=== PATIENT | female | born 1950 ===

== ENCOUNTER 2023-11-22 07:52 | Day surgery (SDC) | payer OTHER | END 2023-11-22 13:45 | disposition home or self-care (01) | LOC: AMB-ENDOS 07:52 → CIR.AMB 13:15 → AMB-ENDOS 13:45 | PROVIDERS: ATTEND Surgery | DX: D12.5 Benign neoplasm of sigmoid colon (principal); K62.5 Hemorrhage of anus and rectum; K57.30 Diverticulosis of large intestine without perforation or abscess without bleeding; Z20.822 Contact with and (suspected) exposure to COVID-19; K64.8 Other hemorrhoids ==